=== PATIENT | male | born 1985 | race Caucasian/White ===

== ENCOUNTER 2016-10-29 03:34 | Emergency (ER) | payer OTHER ==
[~2016-10-29] VITALS: Ht 185.4 cm; Wt 78.0 kg
[2016-10-29 03:36] VITALS: BP 125/77; PULSE 94; RESP 16; TEMP 96.7; O2SAT 99
[2016-10-29] MEDS ORDERED: PROPARACAINE HCL 0.5% OPHT SOLN 15 ML BTL EACH EYE ONE (04:15)
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
--- NOTE | 2016-10-29 06:43 | PD ---
Physical Exam Date Seen by Provider: October 29, 2016 Time Seen by Provider: 05:30 Narrative Accepted in transfer of care SHREDDING MACHINE OPERATOR GENERAL: Well-developed well-nourished male in no acute distress no respiratory distress SKIN: Warm and dry. HEAD: Atraumatic. Normocephalic. EYES: Pupils equal and round. Extraocular muscles intact. No fluorescein uptake. No scleral icterus. No injection or drainage. Visual acuity right eye 20/50 left eye 20/40 without corrective lenses right upper eyelid has a 0.5 cm linear vertical through and through laceration mid eyelid, bleeding controlled, soft tissue swelling. No periorbital rim tenderness or bony step-off. ENT: No nasal bleeding or discharge. Mucous membranes pink and moist. Airway is patent. NECK: Trachea midline. No JVD. No midline tenderness to direct palpation along the cervical spine no bony step-off. CARDIOVASCULAR: Regular rate and rhythm. RESPIRATORY: No accessory muscle use. Clear to auscultation. Breath sounds equal bilaterally. GASTROINTESTINAL: Abdomen soft, non-tender, nondistended. Hepatic and splenic margins not palpable. MUSCULOSKELETAL: Extremities without clubbing, cyanosis, or edema. No obvious deformities. NEUROLOGICAL: Awake and alert. No obvious cranial nerve deficits. Motor grossly within normal limits. Five out of 5 muscle strength in the arms and legs. Normal speech. PSYCHIATRIC: Appropriate mood and affect; insight and judgment normal. Data Data Last Documented VS Vital Signs Date Time Temp Pulse Resp B/P Pulse Ox O2 Delivery O2 Flow Rate FiO2 10/29/16 03:36 96.7 94 16 125/[address] Brain W/O Iv Contrast(Rout) (10/29/16 ) Ct Facial Bones W/O Iv Cont (10/29/16 ) Proparacaine 0.5% Opth Soln (Alcaine 0.5 (10/29/16 04:15) Radiology Film Requests (10/29/16 ) [facility] Medical Record Reviewed: Yes Supervised Visit with JASSI: Yes Interpretation(s) Vital Signs Date Time Temp Pulse Resp B/P Pulse Ox O2 Delivery O2 Flow Rate FiO2 10/29/16 03:36 96.7 94 16 125/77 99 Room Air Last Impressions Maxillofacial CT 10/29/16 0000 Signed Impressions: Service Date/Time: Saturday, October 29, 2016 04:29 - CONCLUSION: 1. Left frontal scalp swelling. No facial bone fracture identified. Luis Langston MD Head CT 10/29/16 0000 Signed Impressions: Service Date/Time: Saturday, October 29, 2016 04:29 - CONCLUSION: 1. No acute intracranial abnormalities. Left frontal scalp swelling. Luis Langston MD Differential Diagnosis Contusion laceration globe injury fracture Narrative Course Patient was seen with SHREDDING MACHINE OPERATOR at this time we do not have access to craniofacial, plastics for repair of through and through midline vertical right upper eyelid laceration; patient's tetanus status is current no other injuries identified. Patient's case discussed with [facility] plastics specialist gas distribution plant operator Dr. Rowe who will accept patient in transfer for eyelid repair; Case discussed with ED MD Dr Stuart accept ED to ED transfer as patient accepted in transfer by Dr Rowe Physician Communication Physician Communication discussed with Dr Rowe; discussed with Dr Stuart Diagnosis Primary Impression: Eyelid laceration Qualified Code: S01.119A - Eyelid laceration, unspecified laterality, initial encounter Disposition: 70 TRANSFER TO OTHER FACILITY ([facility] to accepting plastic surgeon Dr Rowe ; discussed with ED MD Dr Stuart) Condition: Stable Abril Peoples MD October 29, 2016 06:43
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
== END 2016-10-29 10:21 | disposition home or self-care (01) ==
LOC: NEPD 03:34 → NEPC 10:21
DX: S01.111A Laceration without foreign body of right eyelid and periocular area, initial encounter (principal); Y04.2XXA Assault by strike against or bumped into by another person, initial encounter
CPT/HCPCS: 70450; 70486; 99285